=== PATIENT | female | born 1940 | race Two or more races ===

== ENCOUNTER 2025-04-25 08:51 | Emergency (ER) | payer OTHER ==
[~2025-04-25] VITALS: Ht 154.9 cm; Wt 49.9 kg
[2025-04-25] MEDS ORDERED: JARDIANCE10 MG PO (09:55)
[2025-04-25] MEDS ORDERED: JANUVIA100 MG PO (09:55)
[2025-04-25] MEDS ORDERED: METOPROLOL TART50 MG PO (09:56)
[2025-04-25] MEDS ORDERED: CRESTOR40 MG PO (09:57)
[2025-04-25] MEDS ORDERED: SYNTHROID50 MCG PO (09:57)
[2025-04-25] MEDS ORDERED: MECLIZINE HCL 25 MG TABLET PO ONE ×2 (10:37→10:45)
[2025-04-25 10:53] LABS: BASO % 0.5 % (0.1-1.2); EOS # 0.03 (0.04-0.54); EOS % 0.5 % (0.7-7.0); LYMPH # 0.80 (1.18-3.74); LYMPH % 12.6 % (19.3-53.1); MEAN PLATELET VOLUME 9.90 fl (9.4-12.4); MONO # 0.50 (0.24-0.82); MONO % 7.8 % (4.7-12.5); NEUT # 5.00 (1.56-6.13); NEUT % 78.4 % (34.0-71.1); RED CELL DISTRIBUTION WIDTH 20.0 % (11.6-14.4)
[2025-04-25 11:56] LABS: BUN CREA RATIO 21.0 (7.0-25.0); CREATININE SERUM 0.81 mg/dL (0.55-1.02); GFR 67.69; GLUCOSE FASTING 125.0 mg/dL (65-100); OSMOLALITY SERUM 284.0 MOSM/KG (275-295)
== END 2025-04-25 12:26 | disposition home or self-care (01) ==
LOC: ER 08:51
PROVIDERS: General Practice
DX: H81.10 Benign paroxysmal vertigo, unspecified ear (principal); Z88.0 Allergy status to penicillin; H61.23 Impacted cerumen, bilateral